=== PATIENT | female | born 1995 | race Two or more races ===

== ENCOUNTER 2024-10-08 07:07 | Emergency (ER) | payer OTHER ==
[2024-10-08 07:29] VITALS: BMI 24.7
[2024-10-08] MEDS ORDERED: ACETAMINOPHEN 325 MG TABLET (FP) ONE (08:03)
[2024-10-08] MEDS: ACETAMINOPHEN 325 MG TABLET (FP) PO ONE (08:12)
[2024-10-08 08:35] LABS: ABSOLUTE IMMATURE GRANULOCYTES 0.03 x10^3/uL (0.0-0.031); BASOPHILS # 0.05 x10^3/uL (0.01-0.08); EOSINOPHIL % 0.6 % (0.7-5.8); EOSINOPHILS # 0.04 x10^3/uL (0.04-0.36); MCHC 32.4 g/dl (32.2-35.5); MEAN CELL VOLUME 88.8 fl (79.4-94.8); MEAN PLT VOLUME 10.5 fl (9.4-12.3); MONOCYTE # 0.33 x10^3/uL (0.24-0.86); MONOCYTE % 4.7 % (4.7-12.5); RDW 13.6 % (12.1-16.5)
[2024-10-08 08:37] LABS: EPI CELLS 17 /uL (0-25.1); HYALINE CASTS 0 /uL (0-3.1); URINE APPEARANCE CLEAR; URINE BACTERIA 214 /uL (0-1359); URINE BILIRUBIN NEGATIVE (NEGATIVE); URINE COLOR YELLOW; URINE GLUCOSE (UA) NEGATIVE (NEGATIVE); URINE KETONE TRACE (NEGATIVE); URINE LEUK ESTERASE NEGATIVE (NEGATIVE); URINE NITRITE NEGATIVE (NEGATIVE); URINE PROTEIN NEGATIVE (NEGATIVE); URINE RBC 25 /uL (0-23.9); URINE UROBILINOGEN 0.2 mg/dL (0.2-1.0); URINE WBC 7 /uL (0-25.8)
[2024-10-08 08:48] LABS: INR 1.1 (0.83-1.09); PROTHROMBIN TIME (PATIENT) 12.1 SEC (9.7-13.0)
[2024-10-08 08:51] LABS: ACTIVATED PTT 27.3 SECONDS (25.2-36.5)
[2024-10-08 09:01] LABS: CO2 26.0 mmol/L (21-32); GLUCOSE,RANDOM 101.0 mg/dL (74-106)
[2024-10-08 09:04] LABS: CREATININE 0.6 mg/dL (0.55-1.3); SGPT/ALT 19.0 U/L (13-61)
[2024-10-08 09:05] LABS: SGOT/AST 12.0 U/L (15-37)
[2024-10-08 09:06] LABS: ALK PHOS 72.0 U/L (45-117); TOT PROT 7.8 g/dl (6.4-8.2)
[2024-10-08 10:28] VITALS: BP 103/72; PULSE 90; RESP 18; TEMP 98.3
[2024-10-08] MEDS: KETOROLAC TROMETHAMINE 30 MG/1 ML VIAL IM ONE (11:15)
[2024-10-08] MEDS ORDERED: KETOROLAC TROMETHAMINE 30 MG/1 ML VIAL ONE (11:19)
[2024-10-08 12:58] LABS: HCV DIAGNOSTIC IN-HOUSE W/RFLX NON-REACTIVE (NONREACTIVE); HIV INTERPRETATION NEGATIVE (NEGATIVE)
== END 2024-10-08 11:30 | disposition home or self-care (01) ==
LOC: JER 07:07
PROC: 3E0233Z Introduction of Anti-inflammatory into Muscle, Percutaneous Approach (ICD-10-PCS; principal; 2024-10-08)
DX: O03.9 Complete or unspecified spontaneous abortion without complication (principal); R42 Dizziness and giddiness
CPT/HCPCS: 36415; 76817-TC; 80053; 81003; 84702; 85025; 85610; 85730; 86803; 86850; 86900; 86901; 87086; 87389; 99285-25